=== PATIENT | male | born 1970 | race Caucasian/White ===

== ENCOUNTER 2022-03-15 21:03 | Observation (INO) | payer OTHER, SELFPAY ==
--- NOTE | ~2022-03-15 | XR_ITS ---
XR chest 2V DATE: 03/15/2022 21:46 INDICATION: Left-sided chest pain. History of congestive heart failure. TECHNIQUE: PA and lateral views COMPARISON: None FINDINGS: Normal heart size. Coronary stent is noted. No hilar or mediastinal enlargement. No pulmona ry vascular congestion or pleural effusion. There is mild elevation of left diaphragm. No pulmonary infiltrate or consolidation. IMPRESSION: No active cardiopulmonary disease Coronary stent Reviewed, dictated and finalized at location A.
--- NOTE | 2022-03-15 21:05 | PC.NURSE ---
Pt given a ham sandwich and soft drink due to not having dinner at previous facility. Pt ate 100% of sandwich and verbalized appreciation.
[2022-03-15 21:24] VITALS: BMI 36.0
[2022-03-15 21:30] VITALS: O2SAT 95
--- NOTE | 2022-03-15 21:32 | ECG_ITS ---
Measurements Intervals [place] Rate: 77 P: 58 CO: 223 QRS: -2 QRSD: 154 T: 65 QT: 385 QTc: 436 Interpretive Statements SINUS RHYTHM WITH FIRST DEGREE AV BLOCK LEFT BUNDLE BRANCH BLOCK BASELINE ARTIFACT- I, II, AVR, AVL ABNORMAL ECG NO PREVIOUS ECG AVAILABLE FOR COMPARISON Electronically Signed On 03-16-2022 7:41:28 CDT by Israel Butler D.O.
--- NOTE | 2022-03-15 21:34 | ADMGEN ---
This patient, Noel Gutierrez, was admitted to 2nd Floor Room 208-2. Patient oriented to hospital policies and general routines including ID bracelet, bed and alarms, visiting hours, pain management, procedures, bathroom and other care routines, personal items, smoking policy, room service/diet, and visiting hours. Information on how to activate the Rapid Response Team has been discussed. Patient are encouraged to report perceived risks to care and to ask questions if they do not understand what they are told or what they should do.
[2022-03-15 21:56] LABS: Basophils Absolute Auto 0.03 K/mm3 (0.00-0.10); Basophils Percent Auto 0.4 % (0.0-1.0); Eosinophils Absolute Auto 0.21 K/mm3 (0.02-0.50); Eosinophils Percent Auto 2.5 % (1.0-6.0); Hematocrit 35.1 % (40.0-54.0); Hemoglobin 12.4 g/dL (14.0-18.0); Immature Granulocyte Absolute 0.02 K/mm3 (0.00-0.00); Immature Granulocyte Percent A 0.2 % (0.0-0.0); Lymphocytes Absolute Auto 1.39 K/mm3 (1.10-4.50); Lymphocytes Percent Auto 16.8 % (18.0-42.0); Mean Corpuscular HGB Conc 35.3 g/dL (32.0-36.0); Mean Platelet Volume 10.5 fl (8.7-11.0); Monocytes Absolute Auto 0.63 K/mm3 (0.10-0.90); Monocytes Percent Auto 7.6 % (2.0-11.0); Neutrophils Percent Auto 72.5 % (50.0-70.0); Platelet Count Result 238 K/mm3 (150-420); Red Blood Count 4.13 M/mm3 (4.70-6.10); Red Cell Distribution Width 12.1 % (11.6-14.4); White Blood Count 8.3 K/mm3 (4.8-10.8)
[2022-03-15 22:13] LABS: Anion Gap 7 mmol/L (8-16); Blood Urea Nitrogen 25 mg/dL (7-18); Carbon Dioxide 26 mmol/L (21-32); Chloride 102 mmol/L (98-108); Estimated CRCL calculation 68 ml/min; Estimated Glomerular Filt Rate 48; Potassium 4.5 mmol/L (3.5-5.1); Sodium 135 mmol/L (136-145)
[2022-03-15 22:14] LABS: Calcium 8.7 mg/dL (8.5-10.1); Glucose 229 mg/dL (70-99); Magnesium 1.5 mg/dL (1.8-2.4); Osmolality Calculated 291 mOsm/kg (285-295)
[2022-03-15 22:39] VITALS: PULSE 78
[2022-03-15] MEDS: carvediloL 12.5 MG TABLET 25 MG PO (22:39)
[2022-03-15] MEDS: HYDROcodone/acetaminophen (*CRX) 5-325 MG TABLET 1 TAB PO (22:39)
[2022-03-15] MEDS: INSULIN GLARGINE (*BKC) 100 UNITS/ML 25 UNITS SUB-Q (22:40)
[2022-03-15 23:01] VITALS: BP 123/73; PULSE 75; PULSE 76; RESP 19; TEMP 36.1; O2SAT 95
[2022-03-16 03:06] VITALS: PULSE 63
[2022-03-16 03:54] VITALS: BP 102/53; PULSE 64; RESP 17; TEMP 36.4; O2SAT 97
[2022-03-16 05:10] LABS: Hematocrit 33.3 % (40.0-54.0); Hemoglobin 11.8 g/dL (14.0-18.0); Mean Corpuscular HGB Conc 35.4 g/dL (32.0-36.0); Mean Corpuscular Hemoglobin 30.2 pg (27.0-31.0); Mean Corpuscular Volume 85.2 fL (78.0-102.0); Mean Platelet Volume 10.7 fl (8.7-11.0); Platelet Count Result 202 K/mm3 (150-420); Red Blood Count 3.91 M/mm3 (4.70-6.10); Red Cell Distribution Width 11.9 % (11.6-14.4); White Blood Count 7.5 K/mm3 (4.8-10.8)
[2022-03-16 05:21] LABS: Anion Gap 4 mmol/L (8-16); Blood Urea Nitrogen 26 mg/dL (7-18); Calcium 8.3 mg/dL (8.5-10.1); Carbon Dioxide 29 mmol/L (21-32); Chloride 104 mmol/L (98-108); Estimated CRCL calculation 70 ml/min; Estimated Glomerular Filt Rate 49; Glucose 163 mg/dL (70-99); Osmolality Calculated 292 mOsm/kg (285-295); Potassium 4.9 mmol/L (3.5-5.1); Sodium 137 mmol/L (136-145)
[2022-03-16] MEDS: HYDROcodone/acetaminophen (*CRX) 5-325 MG TABLET 1 TAB PO (06:07)
--- NOTE | 2022-03-16 07:34 | PM.SD2 ---
Same Day Admit/Disch: HPI History of Present Illness Chief complaint: direct admit from [facility] Narrative: This is a 52-year-old male that was accepted to our facility from [facility] in [place]. Patient presented to their emergency department with chest pains patient was transferred to our facility because their hospital did not accept his insurance. Patient has a past medical history of Hypertension, diabetes, congestive heart failure, CAD, CKD and recent cardiac stent X2 placement in December 2020. according to patient he started to experience left chest pain that he describes as a squeezing to his left chest with occasional pain Pinching that radiated to his left shoulder at approximately 7:00 a.m. at that time he rated his pain as 7/10 he also complained of some shortness of breath with activity. patient does have nitro at home he did not take the nitro he states that he stays close to the hospital and went directly to the hospital. Patient was instructed to take Nitro if he is experience chest pain in the future and then proceed to the emergency department. While in the ER patient was given morphine nitro and aspirin afterward patient pain decreased. Patient was transferred to our hospital due to his cardiac history for observation. Patient notes that his condition has improved. He agrees he is ready for discharge he was instructed to proceed to the emergency if he experience any more chest pains. The patient denies, palpitation, extremity numbness, lightheadedness, dizziness, constipation, diarrhea, chills, or fever. Discharge instructions reviewed with patient, as well as provided in writing per nursing staff. The instructions also include specific and strict return/GO TO THE ER as well as f/u information. All questions have been answered, and the patient and/or family deny any further questions with discharge and discharge plan. [facility] Past Medical History Medical History (Updated 03/16/22 @ 08:06 by LIDIA Alonso) Amputation of toe of left foot CAD (coronary artery disease) CKD (chronic kidney disease) HTN (hypertension) Type 2 diabetes mellitus Surgical History Surgical History (Updated 03/16/22 @ 08:06 by LIDIA Alonso) History of heart artery stent december 2020 Family History Family History (Updated 03/15/22 @ 21:57 by Isiah Lambert RN) Father Congestive heart failure Cancer Mother Diabetes mellitus Social History Social History Smoking packs per day: 2 Smoking cigarettes per day: 40.0 Years smoked: 25 Smoking pack-years: 50.00 Smoking status: Former smoker Tobacco type: cigarettes Alcohol intake: former Substance use type: marijuana and prescription drug Last use: 03/14/2022 Has the Lack of Transportation Kept You From Medical Appointments or From Getting Medications?: Yes Within the Past 12 Months, Were You Worried Whether Your Food Would Run Out Before You Got Money to Buy More?: Never True What is Your Housing Situation Today?: I Have Housing Are You Worried That in the Next 2 Months, You May Not Have Your Own Housing to Live In?: No Do You Have Trouble Paying Your Heating Or Electricity Bill?: No Do You Have Trouble Paying For Medicines?: No Are You Currently Unemployed and Looking for Work?: No Highest Level of Education Completed: High School Diploma/GED Do You Have Trouble With Childcare or the Care of a Family Member?: No Spiritual care concerns: No Same Day Admit/Disch: Med Pre-admit Medications Home Medications Medication Instructions Recorded Confirmed Type Humalog U-100 Insulin 15 units IM AC 03/15/22 03/15/22 History Lantus Solostar U-100 Insulin 25 units HS 03/15/22 03/15/22 History albuterol sulfate 90 mcg/actuation 90 mcg inhalation QID PRN 03/15/22 03/15/22 History aerosol inhaler (Ventolin HFA) Shortness Of Breath Or Wheezing aspirin 81 mg PO DAILY 03/15/22 03/15/22 History atorvastatin 80 mg tablet 8
[2022-03-16 08:00] VITALS: BP 131/77; PULSE 71; PULSE 74; RESP 18; TEMP 35.9; O2SAT 95
[2022-03-16] MEDS: ASPIRIN 81 MG CHEWABLE TABLET PO (08:17)
[2022-03-16] MEDS: ENOXAPARIN 40 MG/0.4 ML SYRINGE SUB-Q (08:17)
[2022-03-16 08:18] VITALS: PULSE 71
[2022-03-16] MEDS: SPIRONOLACTONE 25 MG TABLET PO (08:18)
[2022-03-16] MEDS: CLOPIDOGREL BISULFATE 75 MG TABLET PO (08:18)
[2022-03-16] MEDS: MAGNESIUM OXIDE 400 MG TABLET PO (08:18)
[2022-03-16] MEDS: LOSARTAN POTASSIUM 50 MG TABLET 100 MG PO (08:18)
[2022-03-16] MEDS: carvediloL 12.5 MG TABLET 25 MG PO (08:18)
[2022-03-16] MEDS: ATORVASTATIN 40 MG TABLET 80 MG PO (08:18)
--- NOTE | 2022-03-16 10:30 | PC.NURSE ---
Reviewed discharge packet with pt. All questions answered. Pt transported via wheelchair to private vehicle for discharge.
--- NOTE | 2022-03-16 10:43 | PC.NURSE ---
Charting by Sulema Batista, student nurse reviewed and agreed with by this nurse.
--- NOTE | 2022-03-19 13:13 | PC.NURSE ---
Pt states he received and understood the discharge instructions. Pt has no other comments.
== END 2022-03-16 10:30 | disposition home or self-care (01) ==
PROVIDERS: Nurse Practitioner; Admitting Provider Internal Medicine; Visit Provider Internal Medicine
DX: R07.9 Chest pain, unspecified (principal); I10 Essential (primary) hypertension; I11.0 Hypertensive heart disease with heart failure; I50.9 Heart failure, unspecified; I25.10 Atherosclerotic heart disease of native coronary artery without angina pectoris; I13.0 Hypertensive heart and chronic kidney disease with heart failure and stage 1 through stage 4 chronic kidney disease, or unspecified chronic kidney disease; E11.22 Type 2 diabetes mellitus with diabetic chronic kidney disease; N18.9 Chronic kidney disease, unspecified; Z95.5 Presence of coronary angioplasty implant and graft; Z89.422 Acquired absence of other left toe(s); Z79.4 Long term (current) use of insulin; Z79.82 Long term (current) use of aspirin; Z79.01 Long term (current) use of anticoagulants
CPT/HCPCS: 36415; 71046; 80048; 83735; 84484; 85025; 85027; 93005; 96372; A9270; G0378; G0379; J1650; J1815